=== PATIENT | male | born 1965 | race Caucasian/White ===

== ENCOUNTER 2018-01-26 11:02 | Observation (INO) ==
[2018-01-26] MEDS ORDERED: Sodium Chlor 0.9% Inj 500 ML IV.CONT ONE (12:30)
[2018-01-26] MEDS ORDERED: Chlorhexidine Gluconate 2% 1 Pack (2 Cloths) TOPICAL ONE (12:30)
[2018-01-26] MEDS ORDERED: Metoprolol Tartrate 25 MG Tablet PO ONE (12:30)
[2018-01-26] MEDS ORDERED: ceFAZolin 2 GM IV; once IV.SIG ONE (13:00)
[2018-01-26] MEDS ORDERED: Lidocaine 1%/Epinephrine 1:100,000 Inj 20 ML Vial ONE (13:12)
[2018-01-26] MEDS ORDERED: Bupivacaine/Epinephrine PF Inj 0.5% 30 ML Vial ONE (13:12)
[2018-01-26] MEDS ORDERED: Bisacodyl 10 MG Supp RECTAL PRN (15:11)
[2018-01-26] MEDS ORDERED: Post-op Orders (for Pharmacy) OTHER ONE (15:11)
[2018-01-26] MEDS ORDERED: Promethazine 25 MG Supp RECTAL PRN (15:11)
[2018-01-26] MEDS ORDERED: *Ondansetron Inj 4 MG/2 ML Vial PERIprocedural Use ONLY ONE (15:23)
[2018-01-26] MEDS ORDERED: *morphine SULFATE 10 MG/ML PERIprocedure ONLY ONE (15:23)
[2018-01-26] MEDS ORDERED: Naloxone Inj 0.4 MG/ML Vial IV.PUSH PRN (15:27)
[2018-01-26] MEDS ORDERED: fentaNYL Citrate Inj 100 MCG/2 ML Ampul ONE (15:27)
[2018-01-26] MEDS ORDERED: Morphine Inj 4 MG/ML Vial ONE (15:28)
[2018-01-26] MEDS ORDERED: Sodium Chloride 0.9% 2 ML Flush PRN IV.FLUSH (15:52)
[2018-01-26] MEDS: HYDROmorphone PCA Inj 6 MG/30 ML PCA.VIAL PCA PRN (16:06)
--- NOTE | 2018-01-26 18:59 | MP ---
cc: Víctor Ty MD, Joseph D MD DATE OF OPERATION: 01/26/2018 PREOPERATIVE DIAGNOSIS: Recurrent umbilical hernia from previous surgeries x4, mesh irritation complications from previous mesh placement. POSTOPERATIVE DIAGNOSIS: Recurrent umbilical hernia from previous surgeries x4 with intra-abdominal adhesions mesh irritation and complications from mesh placement. PROCEDURE: Removal of previously placed mesh with a retrorectus repair with TIGR mesh. ANESTHESIA: General. SURGEON: Víctor Ty MD PRINT DEVELOPER SURGEON: MD Julián Dyer MD was present from beginning to the end of the case assisting in all portions of the procedure. It was necessary to have this individual in the room to assist in the above surgical procedure. The surgical procedure was assisted by MD Julián Dyer MD presence was necessary throughout the case for appropriate retraction, dissection, visualization, and resection of the important anatomical structures during the surgical procedure. Julián Haro MD was assisting throughout the entirety of the operation. The skill set of Julián Haro MD is medically and surgically necessary to safely complete the surgical procedure. During the surgical case the operating room surgical instruments inspector was working instrument table and passing instruments to the attending surgeon and Julián Haro MD. Julián Haro MD was directly assisting the operating surgeon and involved in the technical aspects of the surgical case. INDICATIONS: This is a pleasant 52-year-old gentleman who has had 4 different surgeries on incisional umbilical hernia. He has chronic pain from the mesh that had been previously placed. He has a recurrence above previously placed mesh. The mesh is quite bothersome to him with chronic pain and itchiness. He has lost about 50 pounds since his last surgery. He desires removal of the mesh with reconstruction with a temporary mesh like TIGR, which was reviewed with the patient. Plans were made for above. PROCEDURE: The patient was taken to the operating room and placed in supine position. After anesthesia, his abdomen was prepped with Betadine. He was given antibiotics. A timeout was done. We made a linear incision in the vertical fashion from above the umbilicus to the left of the umbilicus to below the umbilicus, about 5 inches long. We dissected down through the subcutaneous tissue. The recurrent defect can be seen above the previously placed mesh where he has protruding preperitoneal fat. We were able to enter the abdomen. We were then able to gain access to omentum that was stuck to the mesh. We were able to divide the mesh long-term down the midline. We were then able to carefully tease the mesh that had been previously placed laparoscopically, appears to be a polypropylene mesh removing it from the peritoneal plane circumferentially around the complete placement that had been previously done. We removed some Ethibond sutures in the fascia as well. The entirety of the mesh is removed. We then assured hemostasis on the omentum that was teased away that was very adherent to the mesh. A portion of the omentum was removed because there was mesh within the omentum. With this done, we were able to then get in the retrorectus space circumferentially on the right and left side and superiorly and inferiorly and above and below the previously repairs and where the recurrence was located to normal-appearing fascia. Once this was done, we were able to reapproximate the peritoneum with a 3-0 PDS in a running fashion. We then secured a piece of a TIGR mesh 10 x 8 cm securing it with a 3-0 PDS at the four corners of the top and sides and the bottom, securing it in the retrorectus plane. With this accomplished, we were able to then separate the anterior abdominal fascia from the rectus muscle circumferentially down to below the umbilicus. This fascial layer was then reapproximated with a #1 PDS in a running fashion to completely close the layer. At this time, we were then able to close the deep fascia with a 3-0 Vicryl and the skin was closed with 4-0 Monocryl. Steri-Strips were applied. A LISA dressing was applied. The patient tolerated the procedure well, had no immediate postop complications. Víctor Ty MD JDB/catherine , 06:11 PM , 06:19 PM KAYLENE
[2018-01-26] MEDS ORDERED: Influenza (Quadrivalent) Vaccine 0.5 ML Syringe IM ONE (20:00)
[2018-01-26] MEDS: Famotidine 20 MG Tablet PO SCH (22:18)
[2018-01-26] MEDS: Senna/Docusate Sodium 8.6/50 MG Tablet PO SCH (22:19)
[2018-01-26] MEDS: Sodium Chloride 0.9% 2 ML Flush BID IV.FLUSH SCH (22:24)
[2018-01-27] MEDS: HYDROmorphone PCA Inj 6 MG/30 ML PCA.VIAL PCA PRN ×3 (07:56→22:19)
[2018-01-27] MEDS: Sodium Chloride 0.9% 2 ML Flush BID IV.FLUSH SCH ×2 (08:01→20:41)
[2018-01-27] MEDS: Senna/Docusate Sodium 8.6/50 MG Tablet PO SCH ×2 (09:16→20:38)
[2018-01-27] MEDS: Famotidine 20 MG Tablet PO SCH ×2 (09:16→20:39)
[2018-01-27] MEDS: amLODIPine 5 MG Tablet PO SCH (09:16)
--- NOTE | 2018-01-27 14:19 | P.PNGS ---
Subjective Interval history: DAILY PROGRESS NOTE FOR SURGICAL ATTENDING, DR. JENNY BISWAS Resting in bed Has been OOB today Tolerated lunch Pain controlled Physical Exam Vital signs: Vital Signs 01/26/18 15:15 01/26/18 15:30 01/26/18 15:45 Temperature 97.6 F Pulse Rate 64 50 L 52 L Respiratory Rate 16 16 16 Blood Pressure 123/88 111/58 L 112/56 L Pulse Oximetry 97 96 96 01/26/18 16:00 01/26/18 16:15 01/26/18 20:00 Temperature 97.7 F Pulse Rate 60 56 L 65 Respiratory Rate 16 16 20 Blood Pressure 105/59 L 106/62 119/64 Pulse Oximetry 96 96 94 L 01/27/18 00:00 01/27/18 04:00 01/27/18 08:00 Temperature 97.7 F 98.0 F 97.8 F Pulse Rate 51 L 116 H 49 L Respiratory Rate 18 18 18 Blood Pressure 117/61 112/61 145/67 H Pulse Oximetry 93 L 95 96 01/27/18 09:48 01/27/18 12:00 Temperature 97.8 F Pulse Rate 49 L Respiratory Rate 17 17 Blood Pressure 132/68 Pulse Oximetry 94 L Intake & Output 01/26/18 01/27/18 01/27/18 18:59 06:59 18:59 Intake Total 950 / 950 1800 / 1800 100 / 100 Output Total 50 / 50 650 / 650 Balance 900 / 900 1800 / 1800 -550 / -550 Weight 88.5 kg 88.5 kg Intake: IV 950 / 950 1200 / 1200 100 / 100 LR 1000 mL Inj 1,000 ML @ 30 800 / 800 0 / 0 mls/hr IV.CONT .Q24H [facility] Rx#: [id number] Ofirmev Inj 1,000 mg In 100 ml 100 / 100 200 / 200 100 / 100 @ 400 mls/hr IV.SIG Q6H [facility] Rx# :[id number] LR 1000 mL Inj 1,000 ML @ 80 1000 / 1000 mls/hr IV.SIG .[id number] [facility] Rx#: [id number] Ancef 2 GM Premix Inj 2 gm In 50 / 50 50 ml @ 100 mls/hr IV.SIG ONCE [facility] Rx#:[id number] Oral 600 / 600 Output: Urine 650 / 650 Estimated Blood Loss 50 / 50 Other: # Voids 400 Weight On Admission 88.5 kg Narrative: Alert and awake Abd: soft; LISA in place with good seal; minimally tender to palpation Assessment and Plan - Assessment (1) S/P hernia repair Code(s): Z98.890 - Other specified postprocedural states; Z87.19 - Personal history of other diseases of the digestive system Status: Acute Plan: 52 year old male POD1 removal of previously placed mesh with a retrorectus repair with TIGR mesh -Diet as tolerated -Decrease IVF -WRITING TUTOR for pain control; added PO Percocet -OOB as tolerated -IS -Abdominal binder - Attending Attestation NOTE FOR SURGICAL ATTENDING, DR. JENNY BISWAS Doing well Pain under control Plan discharge tomorrow if he continues to improve I agree with above assessment and plan. The exam, history, and the medical decision-making described in the above note were completed with the assistance of the mid-level provider. I reviewed and agree with the findings presented. I attest that I had a [id number] encounter with the patient on the same day, and personally performed and documented my assessment and findings in the medical record. The following services were provided during this hospital visit: Chart data review, vital sign assessments/reviewing monitor data Review of consultations notes if present. Medication orders/review and/or management Ordering and/or reviewing lab tests Ordering and/or interpreting/reviewing x-rays and/or diagnostic studies Care of the patient and discussion of the patient with the care team Documentation time To help prompt me to consider important information that might be impacting today's encounter and assessment, Information from prior notes written by myself or my colleagues may have been "brought forward/copy and pasted" into today's note.
[2018-01-27] MEDS: oxyCODONE/Acetaminophen 10/325 Tablet PO PRN ×2 (16:23→20:39)
[2018-01-28] MEDS: oxyCODONE/Acetaminophen 10/325 Tablet PO PRN ×2 (05:09→08:53)
[2018-01-28] MEDS: HYDROmorphone PCA Inj 6 MG/30 ML PCA.VIAL PCA PRN (05:10)
--- NOTE | 2018-01-28 07:59 | P.DS ---
Date of admission: 01/26/18 15:45 Primary care physician: No Primary Care Physician Attending physician on discharge: Víctor Ty Anticipated date of discharge: 01/28/18 Brief History from admission: 52 year old male POD2 removal of previously placed mesh with a retrorectus repair with TIGR mesh DS: Diagnosis - Discharge Diagnosis (1) S/P hernia repair Status: Acute DS: Medications - Discharge Medications Prescriptions: oxycodone-acetaminophen 1 tab PO Q4H PRN #18 tab PRN Reason: post op pain exception DS: Summary Hospital Course: This is a 52 year old male POD1 removal of previously placed mesh with a retrorectus repair with TIGR mesh. The patient was able to tolerate a regular diet. His pain was controlled using oral pain medications. He was able to ambulate. He will follow up in the office. - Time Spent with Patient Total time spent providing and/or coordinating discharge services: Less than 30 minutes - Quality: VTE Deep Vein Thrombosis/Pulmonary Embolism Present on Admission: No Exam Vital signs: Vital Signs 01/27/18 08:00 01/27/18 09:48 01/27/18 12:00 Temperature 97.8 F 97.8 F Pulse Rate 49 L 49 L Respiratory Rate 18 17 17 Blood Pressure 145/67 H 132/68 Pulse Oximetry 96 94 L 01/27/18 16:00 01/27/18 20:00 01/28/18 00:00 Temperature 97.7 F 97.8 F 98.5 F Pulse Rate 47 L 48 L 47 L Respiratory Rate 19 16 14 Blood Pressure 147/69 H 132/77 122/66 Pulse Oximetry 93 L 94 L 94 L 01/28/18 01:41 01/28/18 04:00 Temperature 98.2 F Pulse Rate 66 Respiratory Rate 15 16 Blood Pressure 130/75 Pulse Oximetry 96 Intake & Output 01/27/18 01/28/18 01/28/18 18:59 06:59 18:59 Intake Total 800 / 800 480 / 480 Output Total 950 / 950 1175 / 1175 Balance -150 / -150 -695 / -695 Weight 90.8 kg Intake: IV 200 / 200 Ofirmev Inj 1,000 mg In 100 ml 200 / 200 @ 400 mls/hr IV.SIG Q6H [facility] Rx# :[id number] Oral 600 / 600 480 / 480 Output: Urine 950 / 950 1175 / 1175 Other: # Voids 3 # Bowel Movements 0 Narrative: Alert and awake Abd: soft; minimally tender to palpation; LISA in place; binder in place Results Procedures completed during hospitalization: 52 year old male POD2 removal of previously placed mesh with a retrorectus repair with TIGR mesh Pending studies at discharge: Pending at discharge 01/26/18 07:48 Surgical [PTH] Routine Discharge Plan - Discharge Disposition Patient Disposition: 01 Discharge Home - Discharge Condition Condition: Good - Discharge Order Discharge Orders: Discharge Order (Routine); Ordered 01/28/18 Ordered By: Gaviota Khan - Discharge Details Anticipated Discharge Date: 01/28/18 Discharge Comment: rx on chart - Physicians Team Primary Care Provider: Primary Care Elis Quezada Attending Provider: Víctor Ty - Rxs /Orders / Referrals /Forms Prescriptions: New oxycodone-acetaminophen 5-325 mg Tablet 1 tab PO Q4H PRN (Reason: post op pain exception ) Qty: 18 RF: 0 Continue amlodipine 5 mg Tablet 5 mg PO DAILY losartan 50 mg Tablet 50 mg PO DAILY ranitidine HCl 150 mg Tablet 150 mg PO HS zolpidem 10 mg Tablet 10 mg PO HS PRN (Reason: Sleep) Referrals: Brooks Lynn MD [GENERAL SURGERY] - 02/03/18 8:50 am (Appt set for Feb 03 at 8:50AM ) Primary Care Elis Quezada [Primary Care Provider] - See Instructions (CALL [phone] AT 8AM THE DAY YOU WOULD LIKE TO BE SEEN [address] [place] [id number]) - Discharge Instructions Patient Printed Instructions: Oxycodone/Acetaminophen (By mouth), Open Herniorrhaphy (DC)
[2018-01-28 08:43] VITALS: BP 135/72; PULSE 58; RESP 17; TEMP 98.7; O2SAT 97
[2018-01-28] MEDS: Senna/Docusate Sodium 8.6/50 MG Tablet PO SCH (08:53)
[2018-01-28] MEDS: Sodium Chloride 0.9% 2 ML Flush BID IV.FLUSH SCH (08:53)
[2018-01-28] MEDS: amLODIPine 5 MG Tablet PO SCH (08:53)
[2018-01-28] MEDS: Famotidine 20 MG Tablet PO SCH (08:53)
== END 2018-01-28 10:32 | disposition home or self-care (01) ==
LOC: HSDC 11:02 → N07 11:02
PROVIDERS: ADMIT Surgery; ATTEND Surgery